=== PATIENT | female | born 1975 | race American Indian/Alaskan Native ===

== ENCOUNTER 2018-05-23 05:48 | Day surgery (SDC) | payer OTHER ==
[~2018-05-23 05:48] MED LIST: LACTATED RINGERS 1,000 ML IV SCH; PEPCID IV ONE
[2018-05-23] MEDS ORDERED: VERSED IV NR (06:00)
[2018-05-23] MEDS ORDERED: ANCEF/STERILE WATER 2 GM/20 ML 2 GM/20 ML SYRINGE IV NR (06:00)
[2018-05-23] MEDS ORDERED: NEURONTIN PO SCH (06:00)
[2018-05-23] MEDS ORDERED: NACL 0.9% 1000 ML 1,000 ML IV SCH (06:00)
[2018-05-23] MEDS ORDERED: PROVENTIL IH NR (06:00)
[2018-05-23] MEDS ORDERED: XYLOCAINE 1% 20 mL ONE (07:12)
[2018-05-23] MEDS ORDERED: MARCAINE 0.5% INFILTRATI ONE (07:12)
--- NOTE | 2018-05-23 07:16 | Anesthesia Day of Surgery ---
Anesthesia Day of Surgery - Day of Surgery Patient Examined: Yes Patient H&P Reviewed: Yes Patient is NPO: Yes
--- NOTE | 2018-05-23 07:16 | Anesthesia Consultation ---
Anesthesia Consult and Med Hx Date of service: 05/23/18 - Airway Anesthetic Teeth Evaluation: Good (some missing teeth) ROM Head & Neck: Adequate Mental/Hyoid Distance: Adequate Mallampati Class: Class III Intubation Access Assessment: Possibly Difficult - Pre-Operative Health Status ASA Pre-Surgery Classification: ASA2 Proposed Anesthetic Plan: General - Pulmonary Hx Smoking: Yes (LIGHT NICOTINE, USES VAPES AND CIGARS) Hx Asthma: Yes (DAILY AND RESCUE INHALERS) Hx Sleep Apnea: Yes - Central Nervous System Hx Back Pain: Yes (LUMBAR) Hx Psychiatric Problems: Yes - Other Systems Hx Alcohol Use: Yes (OCCA) Hx Substance Use: No Hx Cancer: No Hx Obesity: Yes (BMI 35.3)
[2018-05-23] MEDS ORDERED: DILAUDID ONE (07:23)
[2018-05-23] MEDS ORDERED: DIPRIVAN 10 MG/ML IV ONE (07:24)
[2018-05-23] MEDS ORDERED: MARCAINE-EPI 0.5%-1:200,000 INFILTRATI ONE ×2 (07:25→07:53)
[2018-05-23] MEDS ORDERED: XYLOCAINE MPF 2% ONE (07:27)
--- NOTE | 2018-05-23 07:27 | Short Stay Summary ---
Short Stay Documentation Date of service: 05/23/18 - History H&P: obtained from office - Allergies and Medications Current Medications: Allergies No Known Allergies Allergy (Verified 05/22/18 09:18) Home Medications Medication Instructions Recorded Confirmed Last Taken Type ALBUTEROL Inhaler (OR & NICU) 2 puff IH QID PRN 05/22/18 05/22/18 Unknown History [Proair] ARIPiprazole [Abilify] 5 mg PO DAILY 05/22/18 05/22/18 Unknown History Aspirin [Aspirin BABY CHEW TAB] 81 mg PO QDAY 05/22/18 05/22/18 Unknown History Azelastine/Fluticasone [Dymista 1 spray NS BID 05/22/18 05/22/18 Unknown History Nasal [place]] Cetirizine HCl [ZyrTEC] 10 mg PO DAILY 05/22/18 05/22/18 Unknown History Ergocalciferol [Vitamin D2] 1 cap PO QWEEK 05/22/18 05/22/18 Unknown History Famotidine [Acid Controller] 20 mg PO BID 05/22/18 05/22/18 Unknown History Fluticasone Propionate [Flovent 1 puff IH BID 05/22/18 05/22/18 Unknown History Hfa] Rabeprazole Sodium [Aciphex] 20 mg PO DAILY 05/22/18 05/22/18 Unknown History Rosuvastatin Calcium [Crestor] 20 mg PO QHS 05/22/18 05/22/18 Unknown History SUMAtriptan SUCCINATE [Imitrex] 100 mg PO BID PRN 05/22/18 05/22/18 Unknown History Simethicone [Bicarsim] 80 mg PO ACHS PRN 05/22/18 05/22/18 Unknown History Trazodone HCl 50 mg PO QHS PRN 05/22/18 05/22/18 Unknown History hydrOXYzine HCl [Hydroxyzine HCl] 5 mg PO BID 05/22/18 05/22/18 Unknown History Active Medications Albuterol (Proventil) 2.5 mg IH PREOP NR Stop: 05/23/18 23:59 Last Admin: 05/23/18 06:59 Dose: 2.5 mg Documented by: Famotidine (Pepcid) 20 mg IV ONCE ONE Stop: 05/23/18 08:01 Gabapentin (Neurontin) 600 mg PO PREOP KIT Stop: 05/23/18 23:59 Last Admin: 05/23/18 06:59 Dose: 600 mg Documented by: Cefazolin Sodium (Ancef/Sterile Water 2 Gm/20 Ml) 2 gm in 20 mls @ 80 mls/hr IV PREOP NR; Protocol Stop: 05/23/18 23:59 Sodium Chloride (Nacl 0.9% 1000 Ml) 1,000 mls @ 42 mls/hr IV DIRECT KIT Lactated Ringer's (Lactated Ringers) 1,000 mls @ 100 mls/hr IV DIRECT KIT Last Admin: 05/23/18 06:35 Dose: 100 mls/hr Documented by: Midazolam HCl (Versed) 2 mg IV PREOP NR Stop: 05/23/18 23:59 Last Admin: 05/23/18 06:58 Dose: 2 mg Documented by: - Physical exam General appearance: no acute distress Lungs: Normal air movement Neurological: Normal speech - Brief post op/procedure progress note Date of procedure: 05/23/18 (Dictation: [id number]) Pre-op diagnosis: periumbilical pain Post-op diagnosis: same Procedure: Dx Lap Lap lysis of adhesions Division of median umbilical ligament Umbilical exploration IVF 500cc EBL min Anesthesia: GETA Findings: omental adhesions to umbilical area. No obvious hernia No obvious site of drainage from umbilical base Surgeon: MAUREEN LENNON Estimated blood loss: minimal Pathology: none Condition: stable - Hospital course Hospital course: uneventful - Disposition Condition at discharge: Stable Disposition: DC-01 TO HOME OR SELFCARE Short Stay Discharge Plan Activity: other (no driving until cleared by surgeon) Diet: regular Wound: open to air, keep clean and dry, other (apply ice to wounds for 10-15min/ 4-5 times a day. May shower tomorrow. Pat dry wounds. ) Special Instructions: no heavy lifting (or strenuous activity for 6 weeks) Additional Instructions: APPOINTMENT: DR LENNON WANTS TO SEE YOU IN 14 DAYS CALL FOR APPOINTMENT AND FOR ANY QUESTIONS OR CONCERNS RELATED TO TODAY'S PROCEDURE. ACTIVITY: NO HEAVY LIFTING . : NO DRIVING UNTIL CLEARED BY SURGEON. WOUND: LEAVE UNCOVERED KEEP CLEAN AND DRY. : APPLY ICE PACK TO INCISIONS AREAS ON FOR 10-15 MINUTES 4-5 TIMES PER DAY. : MAY SHOWER TOMORROW PAT DRY . PRESCRIPTION: HYDROCODONE FOR PAIN TAKE DIRECTED. YOU WERE MEDICATED WITH 1 HYDROCODONE TABLET BY MOUTH AT 10:00 AM OK TO REPEAT PAIN MEDICATION AFTER 6 HOURS IF YOU ARE HAVING PAIN . Follow up with: [facility] [Primary Care Provider] - 7 Days MAUREEN LENNON MD [Staff Physician] - 14 Days Forms: Outpatient Surgery DC Inst. Prescriptions: HYDROcodone/APAP 5-325 [[place] 5/325] 2 each PO Q6H PRN #40 tablet PRN Reason: Pain , Severe (7-10)
[2018-05-23] MEDS ORDERED: NACL 0.9% IR ONE (07:53)
[2018-05-23] MEDS ORDERED: WATER FOR IRRIG STERILE IR ONE (07:53)
[2018-05-23] MEDS ORDERED: XYLOCAINE 1% 20 mL INFILTRATI ONE (07:53)
[2018-05-23] MEDS ORDERED: PEPCID IV ONE (08:00)
[2018-05-23] MEDS ORDERED: QUELICIN ONE (08:21)
[2018-05-23] MEDS ORDERED: ZOFRAN ONE (08:22)
[2018-05-23] MEDS ORDERED: TORADOL ONE (08:22)
[2018-05-23] MEDS ORDERED: ZEMURON IV ONE (08:22)
[2018-05-23] MEDS ORDERED: ROBINUL ONE (08:24)
[2018-05-23] MEDS ORDERED: BLOXIVERZ ONE (08:24)
[2018-05-23] MEDS ORDERED: DILAUDID IV PRN (08:35)
[2018-05-23 09:50] VITALS: BP 108/57
[2018-05-23] MEDS ORDERED: NORCO 5/325 ONE (10:00)
[2018-05-23] MEDS ORDERED: NORCO 5/325 PO PRN (10:00)
--- NOTE | 2018-05-23 11:30 | Post Anesthesia Evaluation ---
- Post Anesthesia Evaluation Patient Participated: Yes Airway Patent: Yes Stable Respiratory Function: Yes Nausea/Vomiting: No Temp > 96.8F: Yes Pain Manageable: Yes Adequeate Hydration: Yes Anesthesia Complications: No
--- NOTE | 2018-05-23 12:44 | Operative Report ---
PREOPERATIVE DIAGNOSIS: Periumbilical pain and drainage. POSTOPERATIVE DIAGNOSIS: Periumbilical pain and drainage. PROCEDURE: 1. Diagnostic laparoscopy. 2. Laparoscopic lysis of adhesions. 3. Median umbilical ligament ligation. 4. Umbilical exploration. ATTENDING PHYSICIAN: Dr. Parker. ANESTHESIA: General. ESTIMATED BLOOD LOSS: Minimal. FLUIDS: 500 mL. FINDINGS: The patient did have obvious omental adhesions to the undersurface of the umbilicus. I did not find any obvious urachal cyst and I did not find any obvious opening at the base of the umbilicus; however, it was very deep. The prior incision from the umbilical hernia repair appeared to be intact. There was no obvious fascial defect around the periumbilical area. The rest of the abdomen appeared normal. SPECIMENS: None. DRAINS: None. COMPLICATIONS: Stable, transferred to Recovery Room. INDICATIONS: This is a 42-year-old female, who presented with complaints of chronic drainage from the umbilicus as well as intermittent periumbilical pain. It was difficult to evaluate her in the clinic as she had a thick abdominal wall and a very deep umbilicus such that we could not adequately evaluate without causing her a great deal of pain. Therefore, the patient was assessed to be in need for evaluation under anesthesia as well as diagnostic laparoscopy. Procedure, risks, benefits were explained to the patient. Risks included but were not limited to infection, bleeding, damage to surrounding structures, ostomy for the procedure in the future. The patient understood and consented. DESCRIPTION OF PROCEDURE: The patient was brought to the operating room, placed on the table in supine position. After adequate general anesthesia was established, the patient was prepped and draped in usual sterile fashion. Antibiotics had been given. SCDs were placed. Timeout was performed. I placed a Veress needle in the left upper quadrant. I was able to insufflate in first attempt and then placed a 5 mm port at the level of the umbilicus on the left side. Using the Optiview technique, I entered the peritoneal cavity safely. There was no evidence of any injury where the Veress needle had been inserted. This was removed and replaced with a 5 mm port. Please note that all skin sites have been injected with 0.5% Marcaine and 1% lidocaine. We immediately saw a moderate amount of adhesions around the periumbilical area. Using the Harmonic scalpel, I pulled these adhesions down and divided with Harmonic scalpel. The median ligament appeared fairly normal; however, in case there was some small communication, which was causing this fluid drainage, I divided it with the Harmonic scalpel. I checked very carefully to see if there is some large fascial defect and I could not find any, everything appeared to be relatively intact. I saw no evidence of any infection or any exposed mesh that may be causing the chronic drainage. I turned my attention to the external surface and using retractors exposed the base of the umbilicus. Along the way, we did not see any signs of any infection or points of drainage. I elevated the base of the umbilicus with Allis clamps. Again, there was nothing obvious, but in case there was a small opening there, I made a small elliptical incision to excise that skin and any potential chronic sinus. I cauterized the internal tissue and then closed the skin with a running 3-0 Monocryl suture. We examined again from the inside, and we saw no other issues, everything was intact. Of note, if there was some opening into the peritoneal cavity, I would have expected we would have heard some hissing from the intra-abdominal pressure and gas, we did not. Abdomen was desufflated. Skin sites were clean and dry. Additional local was injected. The 2 lateral port sites were closed with 4-0 Monocryl subcuticular stitches. Skin was cleaned and dried. Dermabond was placed in all 3 sites. We also placed a 4 x 4 Tegaderm at the umbilicus. The patient tolerated the procedure well. There were no complications. All counts were correct at the end of the case. The patient's family was not in the waiting room for me to talk to. JOB# [id number] RAPHAEL/YUNG
== END 2018-05-23 10:45 | disposition home or self-care (01) ==
LOC: OR 05:48
PROVIDERS: ATTEND Surgery
DX: R10.33 Periumbilical pain (principal); E78.00 Pure hypercholesterolemia, unspecified; G43.909 Migraine, unspecified, not intractable, without status migrainosus; J45.909 Unspecified asthma, uncomplicated; K21.9 Gastro-esophageal reflux disease without esophagitis; F17.210 Nicotine dependence, cigarettes, uncomplicated; G62.9 Polyneuropathy, unspecified; M19.90 Unspecified osteoarthritis, unspecified site; F32.9 Major depressive disorder, single episode, unspecified; F41.9 Anxiety disorder, unspecified; Z72.89 Other problems related to lifestyle; E66.9 Obesity, unspecified; Z68.35 Body mass index [BMI] 35.0-35.9, adult; Z80.0 Family history of malignant neoplasm of digestive organs; Z80.1 Family history of malignant neoplasm of trachea, bronchus and lung; Z79.899 Other long term (current) drug therapy; Z79.82 Long term (current) use of aspirin; Z90.49 Acquired absence of other specified parts of digestive tract; Z98.890 Other specified postprocedural states
CPT/HCPCS: 49329; 81025; J0330; J0690; J1170; J1885; J2250; J2405; J2704; J2710; J7120